=== PATIENT | male | born 1995 | race Caucasian/White ===

== ENCOUNTER 2022-04-10 19:40 | Outpatient (CLI) | payer OTHER, SELFPAY ==
[2022-04-14 22:58] LABS: HSV 1 Subtype by PCR Not Detected; HSV 2 Subtype by PCR Not Detected; Herpes Simplex Subtype Source Vesicle
== END 2022-04-10 19:41 | disposition home or self-care (01) ==
LOC: LKVREF 04-12 10:52
PROVIDERS: PCP Physician Assistant Medical; Visit Provider Nurse Practitioner Family
DX: N48.9 Disorder of penis, unspecified (principal); A60.00 Herpesviral infection of urogenital system, unspecified
CPT/HCPCS: 87070; 87529

== ENCOUNTER 2023-03-18 15:04 | Emergency (ER) | payer OTHER, SELFPAY ==
[2023-03-18 15:07] VITALS: BP 147/78; PULSE 80; RESP 20; TEMP 36.3; O2SAT 97; BMI 35.0
--- NOTE | 2023-03-18 15:40 | ED.GENADULT ---
HPI - General Adult General Chief complaint: Insect Bite Stated complaint: [place] tick bite Time Seen by Provider: 03/18/23 15:17 History of Present Illness HPI narrative: 27-year-old white male was out hunting over the weekend and today noticed a tick in his abdomen he pulled off the head seemed to be remaining his abdomen no redness or erythema no ring rash. Appear to look like a deer tick. Was quite small. Patient is up-to-date on tetanus, presents for eval and for antibiotic treatment Related Data Home Medications Medication Instructions Recorded Confirmed valacyclovir 500 mg tablet 500 mg PO QDAY 04/10/22 06/20/22 (Valtrex) Previous Rx's Medication Instructions Recorded valacyclovir 1 gram tablet 1,000 mg PO BID 10 days #20 tabs 04/16/22 cefuroxime axetil 500 mg tablet 500 mg PO BID #28 tabs 06/20/22 doxycycline hyclate 100 mg capsule 100 mg PO BID #14 caps 03/18/23 Allergies Allergy/AdvReac Type Severity Reaction Status Date / Time Sulfa (Sulfonamide Allergy Severe Unknown Verified 03/18/23 15:10 Antibiotics) Review of Systems Status of ROS: Reports: 6 or more systems reviewed and unremarkable except as noted in History and below PFSH PFS Social History Smoking Status: Never smoker Exam Narrative: Exam Narrative: Objective: Vital signs are within normal limits except slightly elevated blood pressure systolic He has got a small head of a tick imbedded in a area just right lateral of his umbilicus. Procedure: After sterile scrub with alcohol the area with 25 gauge needle was evacuated the tick head. Good hemostasis no deep wound was needed. Area be covered with some sterile bacitracin and bandage Const: Vital Signs, click to edit/add: Vital Signs - 24 hr 03/18/23 15:07 Temperature 97.4 F L Pulse Rate [Pulse Oximeter] 80 Respiratory Rate 20 Blood Pressure [Ri ght Upper Arm] 147/78 H Pulse Oximetry 97 Oxygen Delivery Me thod Room Air Course Vital Signs Vital signs: Initial Vital Signs Temperature 97.4 F L 03/18/23 15:07 Temperature Source Temporal Artery Scan 03/18/23 15:07 Pulse Rate 80 03/18/23 15:07 Pulse Rhythm Regular 03/18/23 15:07 Respiratory Rate 20 11/05/23 15:07 Blood Pressure 147/78 H 03/18/23 15:07 Blood Pressure Mean 101 03/18/23 15:07 Blood Pressure Position Standing 03/18/23 15:07 Pulse Oximetry 97 03/18/23 15:07 Oxygen Delivery Method Room Air 03/18/23 15:07 Vital Signs Temperature 97.4 F L 03/18/23 15:07 Pulse Rate 80 03/18/23 15:07 Respiratory Rate 20 03/18/23 15:07 Blood Pressure 147/78 H 03/18/23 15:07 Pulse Oximetry 97 03/18/23 15:07 Oxygen Delivery Method Room Air 03/18/23 15:07 Temperature 97.4 F L 03/18/23 15:07 Pulse Rate 80 03/18/23 15:07 Respiratory Rate 20 03/18/23 15:07 Blood Pressure 147/78 H 03/18/23 15:07 Pulse Oximetry 97 03/18/23 15:07 Oxygen Delivery Method Room Air 03/18/23 15:07 Medical Decision Making MDM Narrative Medical decision making narrative: [age] year white male with a tick bite to his abdomen with the head remaining. Peer to be possibly a deer tick will get cover him with doxycycline 100 mg b.i.d. x1 week. May soak couple times a day in soapy water and shower as needed. Cover the area with a bandage if needed. Return as needed. Discharge Plan Discharge Clinical Impression: Tick bite Patient Disposition: Home, Self-Care Condition: Improved Additional Instructions: Warm washcloth couple times a day, showered couple times a day for the next 2-3 days, doxycycline 100 mg b.i.d. x7 days. Recheck as needed. Activity Level: No Restrictions Discharge Diet: Regular Prescriptions: New doxycycline hyclate 100 mg capsule 100 mg PO BID Qty: 14 0RF No Action valacyclovir [Valtrex] 500 mg tablet 500 mg PO QDAY cefuroxime axetil 500 mg tablet 500 mg PO BID Qty: 28 0RF valacyclovir 1 gram tablet 1,000 mg PO BID 10 Days Qty: 20 2RF Follow Up/Referrals: Jennifer Lucio PA-C [Primary Care Provider] - Stand Alone Forms: [facility] Info Instructions
== END 2023-03-18 15:55 | disposition home or self-care (01) ==
LOC: ED 15:44
PROVIDERS: Emergency Provider Family Medicine; PCP Physician Assistant Medical
DX: S30.861A Insect bite (nonvenomous) of abdominal wall, initial encounter (principal); W57.XXXA Bitten or stung by nonvenomous insect and other nonvenomous arthropods, initial encounter
CPT/HCPCS: 99283

== ENCOUNTER 2023-09-14 19:10 | Outpatient (CLI) | payer OTHER, SELFPAY ==
[2023-09-17 09:08] LABS: HSV 1 Subtype by PCR Not Detected; HSV 2 Subtype by PCR Not Detected; Herpes Simplex Subtype Source Tissue
== END 2023-09-14 19:11 | disposition home or self-care (01) ==
PROVIDERS: PCP Physician Assistant Medical; Visit Provider Physician Assistant
DX: N48.9 Disorder of penis, unspecified (principal); B96.5 Pseudomonas (aeruginosa) (mallei) (pseudomallei) as the cause of diseases classified elsewhere; B95.61 Methicillin susceptible Staphylococcus aureus infection as the cause of diseases classified elsewhere
CPT/HCPCS: 87070; 87186; 87529